=== PATIENT | male | born 1940 | race Caucasian/White ===

== ENCOUNTER → 2024-12-14 07:41 | Outpatient (REF) | payer MEDICARE, BC, SELFPAY ==
[2024-12-14 09:28] LABS: Hematocrit 42.1 % (39.0-52.0); Hemoglobin 14.3 g/dL (13.0-18.0); Mean Corp Hgb Conc. 34.0 g/dL (33.0-37.0); Mean Corpuscular Volume 91.7 fL (80.0-94.0); Nucleated Red Blood Cells % 0 % (-); Platelet Count 211 10^3/uL (130-400); Red Cell Dist. Width 12.8 % (11.5-14.5)
[2024-12-14 09:59] LABS: Glycohemoglobin (HgbA1c) 10.9 % (4.0-5.6)
[2024-12-14 10:08] LABS: Vitamin D, 25-OH*** 77.3 ng/mL (30-80)
[2024-12-14 10:16] LABS: ALT (SGPT) 22 U/L (0-50); AST (SGOT) 21 U/L (17-59); Albumin 4.0 g/dl (3.5-5.0); Alkaline Phosphatase 141 U/L (38-126); Blood Urea Nitrogen 17 mg/dl (9-20); Calcium 9.2 mg/dl (8.4-10.2); Carbon Dioxide 30 mmol/L (22-30); Chloride 100 mmol/L (98-107); Glucose 356 mg/dl (70-99); HDL Cholesterol 41 mg/dl; LDL Cholesterol, Calculated 80 mg/dl; Potassium 3.9 mmol/L (3.5-5.1); Sodium 137 mmol/L (135-145); Total Protein 7.2 g/dl (6.3-8.2); Very Low Density Lipoprotein 40 mg/dl (0-30); eGFR > 60.00
== END ==
LOC: REG 07:41
PROVIDERS: ATTENDING PHYSICIAN Internal Medicine Geriatric Medicine
DX: E11.9 Type 2 diabetes mellitus without complications (principal); I10 Essential (primary) hypertension; E78.2 Mixed hyperlipidemia; I73.9 Peripheral vascular disease, unspecified; L03.119 Cellulitis of unspecified part of limb; R60.0 Localized edema; I87.2 Venous insufficiency (chronic) (peripheral); S80.819A Abrasion, unspecified lower leg, initial encounter; G62.9 Polyneuropathy, unspecified; M71.22 Synovial cyst of popliteal space [Baker], left knee; F43.22 Adjustment disorder with anxiety; Z13.89 Encounter for screening for other disorder; F51.02 Adjustment insomnia; R31.29 Other microscopic hematuria; R01.1 Cardiac murmur, unspecified; Z79.899 Other long term (current) drug therapy
CPT/HCPCS: 36415; 80053; 80061; 82306; 83036; 85025